=== PATIENT | female | born 1995 | race Two or more races ===

== ENCOUNTER 2018-04-27 15:52 | Emergency (ER) | payer OTHER ==
[~2018-04-27] VITALS: Ht 152.4 cm; Wt 52.2 kg
== END 2018-04-27 17:57 | disposition home or self-care (01) ==
LOC: ER 15:52
DX: O26.891 Other specified pregnancy related conditions, first trimester (principal); R10.2 Pelvic and perineal pain; Z34.01 Encounter for supervision of normal first pregnancy, first trimester